=== PATIENT | male | born 1985 | race Caucasian/White ===

== ENCOUNTER 2018-10-17 14:45 | Emergency (ER) | payer BC, MEDICAID ==
[~2018-10-17] VITALS: Ht 175.3 cm; Wt 105.8 kg
[~2018-10-17 14:45] MED LIST: BACDS PO; DEXL30CA3 PO; HYDR-2514 PO; HYDR1TAB PO; LEVO175T38 PO
[2018-10-17 14:51] VITALS: BP 153/60
== END 2018-10-17 15:17 | disposition home or self-care (01) ==
LOC: ER 14:46
DX: T63.441A Toxic effect of venom of bees, accidental (unintentional), initial encounter (principal); K21.9 Gastro-esophageal reflux disease without esophagitis; E03.9 Hypothyroidism, unspecified; Z88.0 Allergy status to penicillin; Z79.899 Other long term (current) drug therapy; Z79.2 Long term (current) use of antibiotics; Y92.89 Other specified places as the place of occurrence of the external cause
CPT/HCPCS: 99281

== ENCOUNTER 2020-02-03 14:04 | Emergency (ER) | payer BC ==
[~2020-02-03] VITALS: Ht 180.3 cm; Wt 97.2 kg
[2020-02-03 14:42] VITALS: BP 133/64
[2020-02-03] MEDS ORDERED: BUPIVAcaine 0.25% w/Epi /PF 30ml vial SQ ONE (16:20)
[2020-02-03] MEDS ORDERED: CHLO473M3 PO (17:06)
[2020-02-03] MEDS ORDERED: IBUP-1984 PO (17:06)
== END 2020-02-03 17:22 | disposition home or self-care (01) ==
LOC: ER 14:05
DX: K04.7 Periapical abscess without sinus (principal); R60.9 Edema, unspecified; K21.9 Gastro-esophageal reflux disease without esophagitis; E03.9 Hypothyroidism, unspecified; Z88.0 Allergy status to penicillin; Z79.2 Long term (current) use of antibiotics; Z79.899 Other long term (current) drug therapy
CPT/HCPCS: 41800; 99284

== ENCOUNTER 2021-12-04 20:22 | Emergency (ER) | payer BC ==
[~2021-12-04] VITALS: Ht 177.8 cm; Wt 106.8 kg
[~2021-12-04 20:22] MED LIST changes: +CHLO473M3 PO
[2021-12-04 20:32] VITALS: BP 147/81
[2021-12-04 20:50] LABS: BASOPHILS % (AUTO) 0.3 % (0-1); EOSINOPHILS # (AUTO) 0.1 X10'3 (0-0.9); EOSINOPHILS % (AUTO) 0.7 % (0-6); HEMATOCRIT 43.5 % (42.0-52.0); HEMOGLOBIN 15.1 g/dl (14.0-17.9); LYMPHOCYTES # (AUTO) 2.1 X10'3 (1.1-4.8); LYMPHOCYTES % (AUTO) 15.8 % (21-51); MEAN CORPUSCULAR HEMOGLOBIN 32.5 PG (27.0-31.0); MEAN CORPUSCULAR HGB CONC 34.8 g/dL (33.0-36.5); MEAN CORPUSCULAR VOLUME 93.4 FL (78-98); MEAN PLATELET VOLUME 7.8 FL (7.4-10.4); MONOCYTES # (AUTO) 1.1 X10'3 (0-0.9); MONOCYTES % (AUTO) 8.2 % (2-12); NEUTROPHILS # (AUTO) 9.7 X10'3 (1.8-7.7); PLATELET COUNT 279 X10'3 (140-440); RED BLOOD COUNT 4.66 X10'6 (4.70-6.10); RED CELL DISTRIBUTION WIDTH 13.2 % (11.5-14.5)
[2021-12-04 21:06] LABS: ALANINE AMINOTRANSFERASE 34 U/L (12-78); ALBUMIN 4.2 G/DL (3.4-5.0); ALBUMIN/GLOBULIN RATIO 1.2 (1.1-1.5); ALKALINE PHOSPHATASE 57 IU/L (46-116); ANION GAP 6 (8-16); ASPARTATE AMINO TRANSFERASE 13 U/L (10-37); BILIRUBIN,TOTAL 0.5 MG/DL (0.1-1.0); BLOOD UREA NITROGEN 12 MG/DL (7-18); BUN/CREATININE RATIO 9.8 (5.4-32.0); CALCIUM 8.9 MG/DL (8.5-10.1); CHLORIDE 100 MMOL/L (99-107); CREATININE 1.22 MG/DL (0.60-1.10); GLUCOSE 110 MG/DL (70-104); POTASSIUM 3.8 MMOL/L (3.5-5.1); SODIUM 136 MMOL/L (135-145); TOTAL CARBON DIOXIDE 29.7 MMOL/L (24-32); TOTAL PROTEIN 7.6 G/DL (6.4-8.2); eGFR 67 ML/MIN
[2021-12-05 04:06] LABS: D-DIMER 0.51 MG/L FEU (0-0.50)
[2021-12-05] MEDS ORDERED: DOXY100C43 PO ×3 (04:52→04:53)
== END 2021-12-05 05:35 | disposition home or self-care (01) ==
LOC: ER 20:23
DX: J40 Bronchitis, not specified as acute or chronic (principal); Z20.822 Contact with and (suspected) exposure to COVID-19; Z79.2 Long term (current) use of antibiotics; E03.9 Hypothyroidism, unspecified; K21.9 Gastro-esophageal reflux disease without esophagitis; Z88.0 Allergy status to penicillin; Z79.899 Other long term (current) drug therapy; Z79.1 Long term (current) use of non-steroidal anti-inflammatories (NSAID)
CPT/HCPCS: 36415; 71045; 80053; 83880; 84145; 84484; 85025; 85379; 87502; 87503; 87635; 93005; 99285; C9803